=== PATIENT | male | born 1970 | race Caucasian/White ===

== ENCOUNTER 2016-11-07 20:11 | Observation (INO) | payer OTHER ==
[~2016-11-07] VITALS: Ht 182.9 cm; Wt 127.0 kg
--- NOTE | ~2016-11-07 | EKG ---
PATIENT: BAR HEALY UNIT #: [id number] Ventricular Rate: 59 BPM Atrial Rate: 59 BPM P-R Interval: 192 ms QRS Duration: 90 ms Q-T Interval: 398 ms QTC Calculation(Bezet): 394 ms P [place]: 51 degrees Calculated R [place]: 11 degrees Calculated T [place]: 15 degrees Diagnosis Line: Sinus bradycardia Diagnosis Line: Otherwise normal ECG Diagnosis Line: When compared with ECG of 07-NOV-2016 20:20, Diagnosis Line: Vent. rate has decreased BY 36 BPM Diagnosis Line: QT has shortened Diagnosis Line: Confirmed by GRANT OROZCO MD ([id number]) on Diagnosis Line: 11/09/2016 8:25:41 PM INTERPRETING MD: DOREEN
--- NOTE | ~2016-11-07 | CO ---
Unit #: [id number] #: [id number] Patient: BAR HEALY JR [id number] [address] [place], [place] [address] [id number] I MR#: [id number] NAME: BAR HEALY JR ROOM: 57 Age: 46 Sex: M Admission Date: 11/08/2016 : 1970 Attending Physician: Josh Martin M.D. Primary Care Physician: Ashley Davila M.D. CONSULTATION REPORT CHIEF COMPLAINT Abdominal pain and chest pain. We were asked to see for chest discomfort. HISTORY OF PRESENT ILLNESS Mr. Healy is a 46-year-old white male, who presents with several day history of right-sided chest discomfort and abdominal pain. The chest discomfort occurs at the same time the abdominal pain occurs. It is occurring at rest. It has been constant for the last few days. The patient does report that on Wednesday and , he used ice. States he snorted it. Denied IV drug administration. No nausea. No vomiting. No diarrhea. No constipation. No shortness of air. PAST MEDICAL HISTORY 1. Sigmoid diverticulosis with rectal bleeding in 07/2014. Diabetes mellitus type 2, diet controlled presently. 2. Hypertension. 3. Obstructive sleep apnea, uses CPAP. 4. Questionable hyperthyroidism. The patient does not use any medications at present, states recently diagnosed by Dr. Davila. 5. Dyslipidemia. HOME MEDICATIONS Include omeprazole 20 mg daily, Norvasc 5 mg daily, Lipitor 20 mg daily, lisinopril 30 mg daily. PAST SURGICAL HISTORY Ventral hernia repair secondary to incarcerated ventral hernia in 05/2014. SOCIAL HISTORY Quit tobacco 9 years ago. Positive marijuana use. Positive drug use, meth/ice. Denies intravenous drug use, although he is somewhat hesitant to report. Lives in the company of his . REVIEW OF SYSTEMS No syncope. No near syncope. No shortness of air. No hematuria. No melena. Positive for chest discomfort and abdominal discomfort as stated above. PHYSICAL EXAMINATION GENERAL: Well developed, well nourished, white male with poor dentition at bed, in no acute distress. VITAL SIGNS: Temperature 97.3, respirations 20, pulse 61, blood pressure 102/65; 6 feet even, 127 kg, BMI 38. HEENT: Normocephalic and atraumatic. No xanthelasma. Pupils equal, Unit #: [id number] #: [id number] Patient: BAR HEALY JR round, reactive to light. Extraocular movements intact. No jugular venous distention. No elevated CVP. NECK: Supple. No obvious thyromegaly. LUNGS: Clear to auscultation anteriorly and posteriorly bilaterally. HEART: S1 and S2. No S3 or S4. Normal sinus rhythm. No lift. PMI is nondisplaced. ABDOMEN: Tender in the periumbilical area. Positive bowel sounds. EXTREMITIES: No clubbing, cyanosis, or edema. 2+ pulses bilaterally. Moving all extremities spontaneously with equal strength. NEUROLOGIC: Awake, alert, and oriented x3. Speech is clear and appropriate. No facial drooping. No focal deficits. DIAGNOSTIC STUDIES LABORATORY RESULTS: Chemistry; sodium 140, potassium 4.1, chloride 106, CO2 of 26, BUN 29, creatinine 1.7, glucose 102, calcium 9.1, magnesium 2.3, total protein 7.5, AST 33, ALT 46, alkaline phosphatase 71, lipase 31. CK total 218, troponin less than 0.03. Point of care troponin less than 0.05, repeat less than 0.05. Hematology; hemoglobin 12.9, hematocrit 39.1, white blood cell count 6.7, platelet count 223. UA shows 1+ protein, 1+ urobilinogen. ASSESSMENT AND PLAN 1. Right-sided atypical chest discomfort occurring with abdominal discomfort. Troponin negative x3. 12-lead EKG shows normal sinus rhythm, ventricular rate 95. No ST elevation. No ST depression. No acute T-wave abnormalities. The patient has a history of a stress test done in 04/2015 for right-sided chest discomfort that showed extremely small area of possible stress-induced ischemia, EF 58%. 2. Hypertension, well controlled. 3. Dyslipidemia, on statin therapy. We will check a fasting lipid profile in the a.m. The patient was counseled to stop drug use. Acute kidney insufficiency with creatinine 1.7. 4. Obstructive sleep apnea, using CPAP. 5. Positive polysubstance abuse. Positive for ice. Positive for marijuana. His chest discomfort is most likely due to his methamphetamine use. We will repeat an EKG and troponin in the a.m. He reports possible hypothyroidism. We will check a TSH, free T3, T4 in the a.m. Repeat troponin and EKG in a.m. Dictated by... Jewell Kline A.P.R.N. BEV/petra TD: 11/09/2016 01:52 JOB #: [id number] CONSULTATION REPORT Page 1 of 1 X X CONSULTATION REPORT
--- NOTE | ~2016-11-07 | CT4 ---
[facility] A Service of [facility] & [facility] RADIOLOGY TEXT RESULTS PATIENT: BAR HEALY JR LOCATION: [facility] [id number] : 74 UNIT #: [id number] AGE: [address]: Josh Martin MD SEX: M ORDER DR: [id number] [facility] [address] [place], [place] [address] [id number] I MR#: [id number] Acc #: [id number] NAME: BAR HEALY JR : 1970 SEX: M STUDY DATE/TIME: 11/07/2016 22:52 UNIT: [facility] ROOM: [facility] STUDY DESCRIPTION: CT Abd and Pelv Wo Cont Attending Physician: Josh Martin M.D. Ordering Physician: Khurram Farooq D.O. Primary Care Physician: Ashley Davila M.D. MEDICAL IMAGING REPORT This report is preliminary unless electronic signature is present EXAM Abdomen and pelvis CT, 11/07 at 22:52 hours INDICATION Lower abdominal pain, mainly in the right lower quadrant, for 4 days. Pain rates 8/10. TECHNIQUE Axial images were obtained through the abdomen and pelvis following oral contrast administration. Multiplanar reformats were obtained. This CT exam was performed with one or more of the following radiation dose reduction techniques: automatic exposure control, adjustment of mA and/or kV according to patient size, and iterative reconstruction. COMPARISON 07/26/2014 FINDINGS ABDOMEN: Lung bases are clear. Gallbladder is normal. No renal or ureteral stones are seen. There is no hydronephrosis. There is probable fatty infiltration of the liver. There is a 10.0 mm hypodense lesion within the medial segment of the left hepatic lobe. I believe this is present on the old study and is not significantly changed. It is probably a small hemangioma. The unenhanced solid organs are otherwise normal. No free fluid or adenopathy is seen. GI tract is normal. PELVIS: The appendix is normal. There is mild sigmoid diverticulosis, but no diverticulitis is seen. Distal small bowel is normal. Patient is status post ventral wall hernia repair with mesh. Previously seen umbilical fluid collection is resolved. Patient is status post right inguinal hernia repair as well. Urinary bladder is normal. There are no lower ureteral stones. There is ectasia of the infrarenal aorta measuring STS. [facility] A Service of [facility] RADIOLOGY TEXT RESULTS PATIENT: BAR HEALY JR LOCATION: [place] [address] : 74 UNIT #: [id number] AGE: [address]: Josh Martin MD SEX: M ORDER DR: 2.6 cm, previously 2.5 cm. No free fluid. IMPRESSION 1. No acute findings in the abdomen or pelvis. 2. Mild sigmoid diverticulosis. The GI tract, including the appendix, is otherwise normal. 3. No renal or ureteral stones. No hydronephrosis. 4. Hepatic steatosis. 5. 10.0 mm hypodensity in the medial segment of the left hepatic lobe, not significantly changed from prior and benign. 6. Status post umbilical and right inguinal hernia repair. 7. Ectasia of the infrarenal abdominal aorta distally measuring 2.6 cm today, previously 2.5 cm. Dictated by... Cody Pichardo Jr., M.D. THIS IS AN ELECTRONICALLY VERIFIED REPORT Cody Pichardo Jr., M.D. at 11/08/2016 9:20 PM RIN/linda TD: 11/08/2016 12:44 JOB #: [id number] MEDICAL IMAGING REPORT Page 1 of 1 COPY
--- NOTE | ~2016-11-07 | CO ---
Unit #: [id number] #: [id number] Patient: BAR HEALY JR [id number] [address] [place], [place] [address] [id number] MR#: [id number] NAME: BAR HEALY JR ROOM: 575 Age: 46 Sex: M Admission Date: 11/08/2016 : 1970 Attending Physician: Josh Martin M.D. Primary Care Physician: Ashley Davila M.D. Consultation Date: 11/09/2016 CONSULTATION REPORT BRIEF HISTORY The patient is a 46-year-old alert gentleman, who presents with chest pain and crampy lower abdominal pain. Workup is for cardiac, for chest pain. Lower abdominal pain is described as crampy. It has been there for approximately 4 months, intermittent, but now is more severe. He has had normal bowel movements, tolerates regular diet without difficulty. Last colonoscopy was 2 years ago showed diverticular disease. PAST MEDICAL HISTORY 1. Reflux. 2. Diabetes. 3. Hypertension. PAST SURGICAL HISTORY 1. Inguinal hernia repair. 2. Umbilical hernia repair. HOME MEDICATIONS 1. Lisinopril. 2. Lopressor. 3. Omeprazole. 4. Naprosyn. 5. Flexeril. SOCIAL HISTORY Does drink on a daily basis. No smoking. FAMILY HISTORY Negative for GI malignancy. REVIEW OF SYSTEMS No cardiopulmonary complaints at this time. Else, 10 systems reviewed and negative. PHYSICAL EXAMINATION GENERAL: He is awake, alert, appropriate, currently afebrile. VITAL SIGNS: Temperature 97.8. HEENT: Unremarkable. NECK: Supple. No JVD. Trachea midline. LUNGS: Clear to auscultation. Bilateral breath sounds, symmetric. CARDIOVASCULAR: Regular rate and rhythm. ABDOMEN: Soft, nontender, and nondistended. I palpate no masses. No hepatosplenomegaly. EXTREMITIES: No clubbing, cyanosis, or edema. Unit #: [id number] #: [id number] Patient: BAR HEALY JR DIAGNOSTIC STUDIES LABORATORY RESULTS: Show normal white count. Chemistries are normal. IMAGING STUDIES: CT scan shows no acute disease. Noninflamed sigmoid diverticular disease. ASSESSMENT Abdominal pain, unknown etiology. PLAN Recommend cardiac workup. We will consider EGD evaluation. We will add medications consisting of Bentyl and Colace for possible colonic spasms. We will reassess. Dictated by... Amada Goncalves/petra TD: 11/09/2016 06:59 JOB #: [id number] CONSULTATION REPORT Page 1 of 1 X Philip Rehman MD X CONSULTATION REPORT
--- NOTE | ~2016-11-07 | EKG ---
PATIENT: BAR HEALY UNIT #: [id number] Ventricular Rate: 95 BPM Atrial Rate: 95 BPM P-R Interval: 158 ms QRS Duration: 98 ms Q-T Interval: 354 ms QTC Calculation(Bezet): 444 ms P [place]: 31 degrees Calculated R [place]: -6 degrees Calculated T [place]: 7 degrees Diagnosis Line: Normal sinus rhythm Diagnosis Line: Normal ECG Diagnosis Line: When compared with ECG of 06-JUN-2014 13:00, Diagnosis Line: Vent. rate has increased BY 35 BPM Diagnosis Line: QT has lengthened Diagnosis Line: Confirmed by RAGINI GUARDADO MD ([id number]) on Diagnosis Line: 11/08/2016 11:17:12 PM INTERPRETING MD: GEO JULIAN
--- NOTE | ~2016-11-07 | CR72 ---
[facility] A Service of [facility] & [facility] RADIOLOGY TEXT RESULTS PATIENT: BAR HEALY JR LOCATION: [facility] 575- : 74 UNIT #: [id number] AGE: [address]: Josh Martin MD SEX: M ORDER DR: [id number] [facility] [address] [place], [place] [address] [id number] I MR#: [id number] Acc #: [id number] NAME: BAR HEALY JR : 1970 SEX: M STUDY DATE/TIME: 11/07/2016 23:37 UNIT: [facility] ROOM: [facility] STUDY DESCRIPTION: CR Chest Single View Portable Attending Physician: Josh Martin M.D. Ordering Physician: Khurram Farooq D.O. Primary Care Physician: Ashley Davila M.D. MEDICAL IMAGING REPORT This report is preliminary unless electronic signature is present EXAM Portable chest, 11/07 at 23:37 INDICATION Chest pain that started today. FINDINGS AP portable chest is compared with 10/30/2016. Lung volumes are low, but the lungs are clear. Cardiac and mediastinal contours are normal. There is no pneumothorax. IMPRESSION Low lung volumes, but no active disease is seen. Dictated by... Cody Pichardo Jr., M.D. THIS IS AN ELECTRONICALLY VERIFIED REPORT Cody Pichardo Jr., M.D. at 11/08/2016 9:21 PM RIN/linda TD: 11/08/2016 13:02 JOB #: [id number] MEDICAL IMAGING REPORT Page 1 of 1 COPY
--- NOTE | ~2016-11-07 | HP ---
Unit #: [id number] #: [id number] Patient: BAR HEALY JR [id number] [facility] [address] [place], [place] [address] [id number] I MR#: [id number] NAME: BAR HEALY JR ROOM: 57 Age: 46 Sex: M Admission Date: 11/08/2016 : 1970 Attending Physician: Josh Martin M.D. Primary Care Physician: Ashley Davila M.D. HISTORY AND PHYSICAL DIAGNOSIS ON ADMISSION 1. Chest pain. 2. Acute kidney injury. HISTORY OF PRESENT ILLNESS This 46-year-old patient is admitted to [facility] with multiple complaints. As per patient, he was in his usual state of health when he developed lower abdominal pain for the past 4 days. The patient stated that the pain is lower and mid abdominal, is sharp, intermittent, nonradiating, aggravated with bowel movement and relieved by rest. The patient states that the pain was so bad that he decided to come to the hospital. The patient is also complaining of chest pain, which is off and on for the last few weeks. It is midsternal to left chest. It is sharp, nonradiating and intermittent. The patient stated he does not have any pain right now. The patient denies having fevers, chills, cough, rectal bleeding or blood in urine. He denies sore throat, sinus congestion, skin rash. Currently the patient states that his abdominal pain is better, as he received pain medicine in the ER. The patient is not an ideal historian. PAST MEDICAL HISTORY 1. Hypertension. 2. Gastroesophageal reflux disease. 3. Obstructive sleep apnea syndrome. 4. Anxiety disorder. 5. History of type 2 diabetes mellitus. 6. Patient had history of diverticulosis and had a colonoscopy done in 2014 by [facility]. 7. The patient had a Cardiolite stress test done in 2015, which revealed an extremely small area of possible stress-induced ischemia. Ejection fraction was 58%. PAST SURGICAL HISTORY 1. Adenoidectomy. 2. Foot surgery. 3. Inguinal hernia repair. 4. Umbilical hernia repair. ALLERGIES Morphine, Demerol. HOME MEDICATIONS Unit #: [id number] #: [id number] Patient: BAR HEALY JR 1. Prilosec 20 mg p.o. daily. 2. Norvasc 5 mg p.o. daily. 3. Lipitor 20 mg p.o. daily. 4. Lisinopril 30 mg p.o. daily. SOCIAL HISTORY The patient denies smoking and stated that he drinks only socially. PHYSICAL EXAMINATION GENERAL: The patient is lying comfortably in bed, not in any obvious acute distress. VITAL SIGNS: Vital signs reveal a temperature of 97.8, pulse 67 per minute, respiratory rate 13 per minute, blood pressure 120/66. The patient's pulse oximetry currently was 95% on room air. HEENT: Examination revealed no conjunctival congestion. Sclera is nonicteric. NECK: Neck is supple. Trachea is central. RESPIRATORY: Examination revealed decreased breath sounds bilaterally. There are no wheezes or crackles. HEART: Regular rate and rhythm. S1, S2. ABDOMEN: Abdomen is soft. There is slight mid abdominal tenderness present. There is no rebound tenderness, rigidity or guarding. Bowel sounds are present in all 4 quadrants. SKIN: Skin is warm and dry. NEUROLOGIC: Strength is 5/5 bilaterally. The patient is alert to person, place and time. DIAGNOSTIC STUDIES LABS ON ADMISSION: The patient's creatinine is 1.7, sodium 140, potassium 4.1. AST was 33, ALT was 46, lipase was 31. Troponin was less than 0.03. WBC is 6.7, hemoglobin 12.9, platelet count 223. IMAGING: The patient states that he had a CT scan of the abdomen in the ER, but the report is pending currently. CARDIOVASCULAR: EKG revealed normal sinus rhythm. There are no acute ST changes. ASSESSMENT AND PLAN This 46-year-old male presented to the hospital with multiple complaints. 1. Chest pain. The patient (1) serial cardiac enzymes. Will have cardiology see the patient in consultation. The patient had a stress test done in 2025, which revealed a small area of ischemia. 2. Abdominal pain. The patient is complaining of lower abdominal pain. I will request [facility] to see the patient. 3. History of type 2 diabetes mellitus. I will do a hemoglobin A1C in the morning. 4. Acute kidney injury. Will treat the patient with IV fluids and will hold lisinopril and will repeat creatinine in the morning. 5. Hypertension. Will continue the patient's Norvasc. 6. Hyperlipidemia. Will continue on Lipitor. 7. The patient is full code. 8. The plan was discussed with the patient. Unit #: [id number] #: [id number] Patient: BAR HEALY JR Dictated by Amada Palma/wanda TD: 11/08/2016 13:32 JOB #: [id number] HISTORY AND PHYSICAL Page 1 of 1 X Shital Gonzalez MD X HISTORY AND PHYSICAL
[~2016-11-07 20:11] MED LIST: FLEXERIL PO; LISINOPRIL10 MG PO; LOPRESSOR PO; METOPROLOL SUCC50 MG PO; NAPROSYN-EC500 M1 PO; OMEPRAZOLE20 M1 PO; PRILOSEC20 MG PO
[2016-11-07] MEDS ORDERED: OMEPRAZOLE20 M2 PO (21:05)
[2016-11-07] MEDS ORDERED: AMLODIPINE BESYL5 MG PO (21:05)
[2016-11-07] MEDS ORDERED: LISINOPRIL30 MG PO (21:06)
[2016-11-07] MEDS ORDERED: LIPITOR20 MG PO (21:06)
[2016-11-07 22:10] LABS: BASOPHIL% 0.5 % (0-2.5); EOSINOPHIL# 0.1 X10e3 (0-0.7); EOSINOPHIL% 1.1 % (0.0-7.0); HEMATOCRIT 40.7 % (38.0-50.0); HEMOGLOBIN 13.4 gm/dL (13.0-16.0); LYMPHOCYTE# 2.3 X10e3 (1.0-3.5); LYMPHOCYTE% 28.1 % (17.0-45.0); MEAN CELL VOLUME 90.8 FL (83-96); MEAN PLATELET VOLUME 8.6 FL (6.5-11.5); MONOCYTE# 0.5 X10e3 (0-1.0); MONOCYTE% 6.4 % (3.0-12.0); NEUTROPHIL# 5.2 X10e3 (1.5-7.1); NEUTROPHIL% 63.9 % (40-75); PLATELET COUNT 263 X10e3 (140-420); RED BLOOD COUNT 4.49 X10e (3.90-5.60); RED CELL DISTRIBUTION WIDTH 13.2 % (11.0-15.5); WHITE BLOOD COUNT 8.2 X10e3 (4.0-10.5)
[2016-11-07 22:15] LABS: DIFF IND NO
[2016-11-07 22:34] LABS: ALBUMIN SERUM 4.3 g/dL (3.5-5.0); BILIRUBIN, DIRECT 0.1 mg/dL (0.0-0.2); BILIRUBIN,TOTAL 1.1 mg/dL (0.2-2.0); BUN/CREATININE RATIO 14.5; CALCIUM SERUM 9.6 mg/dL (8.4-10.2); GLOM FILT RATE Estimated 39.4 mL/min (>60); PROTEIN TOTAL SERUM 7.5 g/dL (6.0-8.3)
[2016-11-07 22:39] LABS: POC - CKMB 1.8 ng/mL (0.0-7.9); POC - TROPONIN <0.05 ng/mL (<=0.05)
[2016-11-07 23:29] LABS: URINE SOURCE CLEAN CATCH
[2016-11-07 23:33] LABS: URINE APPEARANCE CLOUDY; URINE BILIRUBIN NEG (NEG); URINE BLOOD NEG (NEG); URINE COLOR DK YELLOW; URINE GLUCOSE NEG (NEG); URINE KETONE TRACE (NEG); URINE LEUKOCYTE ESTERASE NEG (NEG); URINE NITRATE NEG (NEG); URINE PROTEIN 1+ (NEG); URINE SPECIFIC GRAVITY 1.028 (1.003-1.035)
[2016-11-07 23:35] LABS: URBCS1 AUWI 0-2 /[HPF] (0-2); URINE BACTERIA AUWI NEG (NEGATIVE); URINE SQUAMOUS EPITHELIAL CELL OCC /[HPF]
[2016-11-07 23:41] LABS: CULTURE INDICATED? NO
[2016-11-08 00:16] LABS: POC - CKMB 1.5 ng/mL (0.0-7.9); POC - TROPONIN <0.05 ng/mL (<=0.05)
[2016-11-08 06:53] LABS: BASOPHIL# 0.1 X10e3 (0-0.3); BASOPHIL% 0.9 % (0-2.5); EOSINOPHIL# 0.3 X10e3 (0-0.7); EOSINOPHIL% 4.3 % (0.0-7.0); HEMATOCRIT 39.1 % (38.0-50.0); HEMOGLOBIN 12.9 gm/dL (13.0-16.0); LYMPHOCYTE# 2.7 X10e3 (1.0-3.5); LYMPHOCYTE% 40.4 % (17.0-45.0); MEAN CELL VOLUME 91.4 FL (83-96); MEAN CORPUSCULAR HEMOGLOBIN 30.2 PG (28-34); MEAN PLATELET VOLUME 8.4 FL (6.5-11.5); MONOCYTE# 0.6 X10e3 (0-1.0); MONOCYTE% 8.9 % (3.0-12.0); NEUTROPHIL% 45.5 % (40-75); PLATELET COUNT 223 X10e3 (140-420); RED BLOOD COUNT 4.28 X10e (3.90-5.60); RED CELL DISTRIBUTION WIDTH 13.1 % (11.0-15.5); WHITE BLOOD COUNT 6.7 X10e3 (4.0-10.5)
[2016-11-08 06:56] LABS: DIFF IND NO
[2016-11-08 07:37] LABS: BUN/CREATININE RATIO 17.05; CALCIUM SERUM 9.1 mg/dL (8.4-10.2); CREATININE SERUM 1.7 mg/dL (0.6-1.4); POTASSIUM 4.1 mmol/L (3.5-5.1)
[2016-11-08 07:55] LABS: MB 2.2 ng/ml
[2016-11-08 13:09] LABS: MB 2.3 ng/ml
[2016-11-08 21:25] LABS: AMPHETAMINE POS (NEG); BARBITURATES NEG (NEG); BENZODIAZEPINES NEG (NEG); COCAINE NEG (NEG); MARIJUANA POS (NEG); OPIATES NEG (NEG); TRICYCLIC ANTIDEPRESSANTS NEG (NEG); U METHADONE NEG (NEG)
[2016-11-09 06:08] LABS: HEMATOCRIT 39.4 % (38.0-50.0); MEAN CELL VOLUME 90.7 FL (83-96); MEAN CORPUSCULAR HEMOGLOBIN 29.9 PG (28-34); MEAN PLATELET VOLUME 8.4 FL (6.5-11.5); RED BLOOD COUNT 4.34 X10e (3.90-5.60); RED CELL DISTRIBUTION WIDTH 13.1 % (11.0-15.5); WHITE BLOOD COUNT 6.6 X10e3 (4.0-10.5)
[2016-11-09 07:02] LABS: THYROID STIMULATING HORMONE 1.09 uIU/ml (0.34-5.60)
[2016-11-09 07:06] LABS: FREE T3 3.5 pg/mL (2.5-3.9)
[2016-11-09 07:08] LABS: FREE THYROXIN (T4) 1.27 ng/dL (0.58-1.64)
[2016-11-09 07:10] LABS: ALBUMIN SERUM 3.4 g/dL (3.5-5.0); BILIRUBIN,TOTAL 0.7 mg/dL (0.2-2.0); BUN/CREATININE RATIO 15.38; CALCIUM SERUM 8.8 mg/dL (8.4-10.2); CREATININE SERUM 1.3 mg/dL (0.6-1.4); GLOM FILT RATE Estimated 66.4 mL/min (>60); POTASSIUM 4.4 mmol/L (3.5-5.1); PROTEIN TOTAL SERUM 6.2 g/dL (6.0-8.3)
== END 2016-11-09 18:20 | disposition home or self-care (01) ==
LOC: CED 20:11 → C5C 11-08 01:50 → CEDOF 11-08 01:50 → C5C 11-08 08:29 → CEDOF 11-08 08:29 → C5C 11-09 18:20
PROVIDERS: Emergency Medicine; Internal Medicine; Internal Medicine Cardiovascular Disease
DX: R07.9 Chest pain, unspecified (principal); N17.9 Acute kidney failure, unspecified; K21.9 Gastro-esophageal reflux disease without esophagitis; E11.9 Type 2 diabetes mellitus without complications; I10 Essential (primary) hypertension; G47.33 Obstructive sleep apnea (adult) (pediatric)
CPT/HCPCS: 36415; 71010; 74176; 80048; 80053; 80061; 80076; 80307; 81003; 82550; 82553; 82947; 83036; 83690; 83735; 84439; 84443; 84481; 84484; 85025; 85027; 93005; 93306; 96374; 96375; 96376; 99285; C9113; G0378; J1170; J1650; J2405

== ENCOUNTER → 2016-12-10 | Outpatient (CLI) | payer OTHER ==
[~2016-12-10] MED LIST changes: +AMLODIPINE BESYL5 MG PO; +LIPITOR20 MG PO; +LISINOPRIL30 MG PO; +OMEPRAZOLE20 M2 PO
== END | disposition home or self-care (01) ==
LOC: CECH 13:12
DX: R53.83 Other fatigue (principal); E66.9 Obesity, unspecified; G47.33 Obstructive sleep apnea (adult) (pediatric); I10 Essential (primary) hypertension
CPT/HCPCS: 93306